=== PATIENT | female | born 1980 | race Caucasian/White ===

== ENCOUNTER 2017-02-23 01:19 | Inpatient (IN) | payer BC ==
[~2017-02-23] VITALS: Ht 167.6 cm; Wt 116.4 kg
[~2017-02-23 01:19] MED LIST: ACET-749 PO; FERR1TAB23; LEVO100T PO; MISC-696; MTR600X PO; OMEP20CA9 PO; PRENTAB26 PO; RANI150T3 PO
[2017-02-23] MEDS ORDERED: LACTATED RINGER'S 1000ML 1,000 ML IV SCH (02:03)
[2017-02-23] MEDS ORDERED: LACTATED RINGER'S 1000ML 1,000 ML IV PRN (02:03)
[2017-02-23] MEDS ORDERED: PENICILLIN G POTASSIUM IV 3 MU in DEXTROSE 5% 100ML 100 ML IV PRN (02:15)
[2017-02-23] MEDS ORDERED: PENICILLIN G POTASSIUM IV 6 MU in DEXTROSE 5% 250ML 250 ML IV ONE (02:15)
[2017-02-23 02:23] LABS: HEMATOCRIT 31.6 % (37-47); MEAN CELL VOLUME 70.9 fL (80-100); MEAN CORPUSCULAR HEMOGLOBIN 21.3 pg (25-34); MEAN CORPUSCULAR HGB CONC 30.1 g/dl (32-36); MEAN PLATELET VOLUME 10.5 fL (7.4-10.4); PLATELET COUNT 247 K/uL (130-400); RED BLOOD COUNT 4.46 M/uL (4.2-5.4); WHITE BLOOD COUNT 13.33 K/uL (4.8-10.8)
[2017-02-23] MEDS ORDERED: BUPIVACAINE 0.25% 30 ML VIAL ONE (02:35)
[2017-02-23] MEDS ORDERED: FENTANYL 2MCG/ML ROPIV 1.25MG/ML 100ML BAG EPI ONE (02:35)
[2017-02-23] MEDS ORDERED: EpHEDrine SULFATE INJ 50 MG/ML AMP ONE (02:35)
[2017-02-23] MEDS ORDERED: FENTANYL CITRATE INJ 50 MCG/1 ML 2 ML VIAL ONE (02:36)
[2017-02-23 02:49] VITALS: Ht 167.6 cm; Wt 116.4 kg
[2017-02-23] MEDS ORDERED: LEVOPOW36 (02:58)
[2017-02-23] MEDS ORDERED: PRLSR20 PO (02:58)
[2017-02-23] MEDS ORDERED: PRENTAB26 PO (02:58)
[2017-02-23] MEDS ORDERED: LACTATED RINGER'S 1000ML 500 ML IV PRN (03:10)
[2017-02-23] MEDS ORDERED: NALOXONE HCL INJ 1 MG in SODIUM CHLORIDE 0.9% 1000ML 1,000 ML IV PRN (03:10)
[2017-02-23] MEDS ORDERED: EpHEDrine SULFATE INJ 50 MG/ML AMP IV PRN (03:15)
[2017-02-23] MEDS ORDERED: NALOXONE HCL INJ 0.4 MG/1 ML VIAL/CARP IV PRN (03:15)
[2017-02-23] MEDS ORDERED: ONDANSETRON INJ 2 MG/ML 2 ML VIAL IV PRN (03:15)
[2017-02-23] MEDS ORDERED: FENTANYL 2MCG/ML ROPIV 1.25MG/ML 100ML BAG EPI PRN (03:15)
[2017-02-23] MEDS ORDERED: DiphenhydrAMINE HCL 50 MG/ML VIAL IV PRN (03:15)
[2017-02-23] MEDS ORDERED: NALBUPHINE HCL INJ 10 MG/ML AMP IV PRN (03:15)
[2017-02-23] MEDS ORDERED: OXYTOCIN 30 UNITS/500ML NSS IV ONE (04:49)
[2017-02-23] MEDS ORDERED: HYDROCORTISONE ACETATE 25 MG SUPP PR PRN (05:30)
[2017-02-23] MEDS ORDERED: DIPHTHERIA/TETANUS/PERTUSSIS 0.5 ML SYR/VIAL IM. ONE (05:30)
[2017-02-23] MEDS ORDERED: ACETAMINOPHEN 325 MG TAB PO PRN (05:30)
[2017-02-23] MEDS ORDERED: SUPERCREAM 0.870 % 15GM JAR EXT PRN (05:30)
[2017-02-23] MEDS ORDERED: BENZOCAINE 20% AER SPR 82.5 GM CAN EXT PRN (05:30)
[2017-02-23] MEDS ORDERED: LANOLIN OINT EXT PRN ×2 (05:30)
[2017-02-23] MEDS ORDERED: OXYTOCIN 30 UNITS/500ML NSS IV PRN (05:30)
[2017-02-23] MEDS ORDERED: MEASLES, MUMPS & RUBELLA VIRUS VIAL SQ. ONE (05:30)
[2017-02-23] MEDS ORDERED: IBUPROFEN 600 MG TAB PO PRN (05:30)
--- NOTE | 2017-02-23 07:09 | Anesthesia Procedure Note ---
Anesthesia Epidural Removal Nt Date & Time Feb 23, 2017 at 07:09 Vital Signs Pain Intensity: 0.0 Notes Mental Status: alert / awake / arousable, participated in evaluation Nausea / Vomiting: adequately controlled Pain: adequately controlled Airway Patency, RR, SpO2: stable & adequate BP & HR: stable & adequate Hydration State: stable & adequate Neuraxial Anesthesia: was administered Anesthetic Complications: no major complications apparent, pt satisfied with anesthetic care Epidural: removed without complications, with tip intact
--- NOTE | 2017-02-23 07:34 | DELIVERY SUMMARY ---
DATE OF OPERATION: 02/23/2017 TIME OF DELIVERY OF BABY: 04:55 a.m. TIME OF DELIVERY OF PLACENTA: 05:14 a.m. DETAILS OF DELIVERY: The patient was found to be fully dilated and desired to push. She pushed only twice and delivered the head without difficulty. Shoulders were delivered with minimal traction. The baby was handed off to the mother where mouth and nose were suctioned. Cord was clamped x2 and cut at 1 minute. Cord blood was obtained, it was 3-vessel cord. Vagina and perineum were checked for lacerations, there was a small perineal laceration at the posterior fourchette and it was second degree, confirmed with the rectal exam. Excellent sphincter tone was noted. Gloves were changed and the laceration was repaired with 2-0 Vicryl in a running locked fashion. Good hemostasis was achieved. Rest of the vagina and perineum were intact. The placenta was found to be in the vagina, delivered spontaneously intact and complete. The uterus was explored and found to be empty. Fundus was firm. Lower segment was cleared of all clots and debris. EBL was 100. Mom and baby tolerated the procedure well. The baby was a viable female infant, Apgars 8/9, weight is pending. No complications happened and I was present during the whole procedure. At the end of the procedure sponge, needle and instrument counts was correct x2. I attest to the content of the Intraoperative Record and any orders documented therein. Any exceptions are noted below. MTDD
[2017-02-23 07:50] VITALS: BP 138/76; PULSE 96; TEMP 37.3
[2017-02-23] MEDS ORDERED: PRENATAL VITAMIN TAB PO SCH (08:00)
[2017-02-23] MEDS ORDERED: FERROUS SULFATE 325 MG TAB PO SCH (08:00)
[2017-02-23] MEDS: DOCUSATE SODIUM 100 MG CAP PO SCH ×2 (09:25→20:25)
[2017-02-23] MEDS: LEVOTHYROXINE 125 MCG TAB PO SCH (10:24)
[2017-02-23 12:10] VITALS: BP 122/78; PULSE 82; TEMP 37
[2017-02-23 15:30] VITALS: BP 111/72; PULSE 90; TEMP 36.9
[2017-02-23] MEDS: PANTOprazole SOD 40 MG TAB PO SCH (20:25)
[2017-02-23] MEDS: OXYCODONE/ACETAMINOPHEN 5-325 TAB PO PRN (20:28)
[2017-02-23 20:30] VITALS: BP 129/84; PULSE 91; TEMP 36.9
[2017-02-23 23:30] VITALS: BP 121/79; PULSE 90; TEMP 36.9
[2017-02-24 03:30] VITALS: BP 134/67; PULSE 82; TEMP 36.8
[2017-02-24 06:48] LABS: HEMATOCRIT 29.7 % (37-47)
[2017-02-24 07:30] VITALS: BP 126/81; PULSE 83; TEMP 36.9
[2017-02-24] MEDS: LEVOTHYROXINE 125 MCG TAB PO SCH (07:38)
[2017-02-24] MEDS: DOCUSATE SODIUM 100 MG CAP PO SCH ×2 (07:39→19:43)
[2017-02-24] MEDS: FLINTSTONES COMPLETE CHEWABLE TAB PO SCH (07:40)
[2017-02-24] MEDS: PANTOprazole SOD 40 MG TAB PO SCH ×2 (07:41→19:43)
[2017-02-24] MEDS: PRENATAL VITAMIN TAB PO SCH (07:41)
--- NOTE | 2017-02-24 07:42 | OB/GYN Progress Note ---
COUN[employer]LL[employer] Progress Note Date of Service Feb 24, 2017. Subjective conversation w/ patient, physical exam Ambulation: ambulating normally Voiding: no voiding problems Passing Gas: Yes Diet Tolerance: Regular Diet Lochia: Small Pain: 4/10 Notes: Doing well, no concerns. Ambulating without difficulty. Tolerating regular diet. Lochia decreasing. Objective Vital Signs Date Time Temp Pulse Resp B/P (MAP) Pulse Ox O2 Delivery O2 Flow Rate FiO2 02/24/17 03:30 36.8 82 18 134/67 (89) Room Air 02/23/17 23:30 Room Air 02/23/17 23:30 36.9 90 18 121/79 (93) Room Air 02/23/17 20:30 36.9 91 16 129/84 (99) Room Air 02/23/17 15:30 Room Air 02/23/17 15:30 36.9 90 20 111/72 (85) Room Air 02/23/17 12:10 37.0 82 20 122/78 (93) Room Air 02/23/17 07:50 37.3 96 20 138/76 (96) 02/23/17 07:50 Room Air Physical Exam General Appearance: WELL-APPEARING Respiratory/Chest: chest non-tender, lungs clear Cardiovascular: regular rate, rhythm Abdomen: normal bowel sounds, soft Fundus: Firm Extremities: normal range of motion, non-tender, no calf tenderness Laboratory Results Last 24 Hours Test 02/24/17 06:18 Hemoglobin 8.6 g/dL Hematocrit 29.7 % Assessment and Plan Post- Day Number: 1 Continue Routine Care: -Continue routine care -Anticipate D/C home tomorrow.
[2017-02-24] MEDS: OXYCODONE/ACETAMINOPHEN 5-325 TAB PO PRN ×3 (08:44→19:44)
[2017-02-24 15:30] VITALS: BP 117/77; PULSE 101; TEMP 36.8
[2017-02-24] MEDS ORDERED: BISACODYL 5 MG TABEC PO SCH (20:00)
[2017-02-24 23:30] VITALS: BP 135/89; PULSE 90; TEMP 36.9
[2017-02-25] MEDS ORDERED: BISACODYL 10 MG SUPP PR PRN (07:00)
[2017-02-25 07:20] VITALS: BP 145/84; PULSE 89; TEMP 36.7; O2SAT 98
[2017-02-25] MEDS: LEVOTHYROXINE 125 MCG TAB PO SCH (07:29)
[2017-02-25] MEDS: DOCUSATE SODIUM 100 MG CAP PO SCH (07:29)
[2017-02-25] MEDS: FLINTSTONES COMPLETE CHEWABLE TAB PO SCH (07:29)
[2017-02-25] MEDS: PRENATAL VITAMIN TAB PO SCH (07:29)
[2017-02-25] MEDS: PANTOprazole SOD 40 MG TAB PO SCH (07:30)
[2017-02-25 08:11] LABS: HEMATOCRIT 30.2 % (37-47); MEAN CELL VOLUME 71.6 fL (80-100); MEAN CORPUSCULAR HEMOGLOBIN 20.6 pg (25-34); MEAN CORPUSCULAR HGB CONC 28.8 g/dl (32-36); MEAN PLATELET VOLUME 10.9 fL (7.4-10.4); PLATELET COUNT 248 K/uL (130-400); RED BLOOD COUNT 4.22 M/uL (4.2-5.4); WHITE BLOOD COUNT 11.55 K/uL (4.8-10.8)
--- NOTE | 2017-02-25 09:26 | OB/GYN Progress Note ---
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 Subjective conversation w/ family, physical exam Ambulation: ambulating normally Voiding: no voiding problems Passing Gas: Yes Diet Tolerance: Regular Diet Lochia: Small Feeding Type: Breast Feeding Objective Vital Signs Date Time Temp Pulse Resp B/P (MAP) Pulse Ox O2 Delivery O2 Flow Rate FiO2 02/25/17 07:20 36.7 89 18 145/84 (104) 98 Room Air 02/25/17 07:20 Room Air 02/24/17 23:30 36.9 90 18 135/89 (104) Room Air 02/24/17 23:30 Room Air 02/24/17 15:30 36.8 101 20 117/77 (90) Room Air 02/24/17 15:30 Room Air Laboratory Results Last 24 Hours Test 02/25/17 07:25 White Blood Count 11.55 K/uL Red Blood Count 4.22 M/uL Hemoglobin 8.7 g/dL Hematocrit 30.2 % Mean Corpuscular Volume 71.6 fL Mean Corpuscular Hemoglobin 20.6 pg Mean Corpuscular Hemoglobin Concent 28.8 g/dl RDW Standard Deviation 44.2 fL RDW Coefficient of Variation 17.0 % Platelet Count 248 K/uL Mean Platelet Volume 10.9 fL Assessment and Plan Post- Day Number: 2 Continue Routine Care: discharged
--- NOTE | 2017-02-25 09:29 | Discharge Instructions ---
Discharge Instructions Date of Service Feb 25, 2017. Admission Reason for Admission: Uterine Contractions Discharge Discharge Diagnosis / Problem: term delivered Discharge Goals Goal(s): Routine recovery after delivery Activity Recommendations Activity Limitations: as noted below Lifting Limitations: no more than 10 pounds Exercise/Sports Limitations: gradually increase as tolerated, until after follow-up appointment May Resume Sexual Activity: after follow-up appointment Shower/Bathe: no limitations Driving or Machine Use: resume 3 days after discharge . Instructions / Follow-Up Instructions / Follow-Up ACTIVITY RECOMMENDATIONS: * Gradual return to full activity over the next 2-3 weeks. * No lifting - nothing heavier than baby over the next 2-3 weeks. * Do not engage in vigorous exercise, sexual activity or sports until cleared by your physician. * Do not drive or operate any motorized equipment until cleared by your physician. * You may shower/bathe daily. BREAST CARE: If you are not breast feeding: * Wear a supportive bra 24 hours a day for one to two weeks. * Avoid stimulating your breasts and nipples as much as possible during the first few weeks after delivery. * When taking a shower, have the warm water hit your back, not breasts. * When your breasts feel full, apply ice packs. Usually three to four times a day helps ease the discomfort. * Take a mild pain medication (Tylenol/Motrin) when you are uncomfortable. If breast feeding: * Use breast milk to lubricate nipples. Lansinoh cream may be used for sore nipples. You do not need to remove cream prior to breast feeding. If using a different brand of cream, check the label for directions regarding removal of cream prior to nursing. * Wear a supportive bra. * If having problems with breasts or breast feeding, call a career development consultant or your health care provider. EPISIOTOMY CARE: After delivery, if you have an episiotomy (stitches), the following steps will ease discomfort and aid healing. * For the first 24 hours after delivery, place ice packs next to your episiotomy to help reduce swelling. * After the first 24 hour-period, sitz baths, either portable or in the tub, are suggested. A shower with a shower arm sprayed over the episiotomy may be comforting. * Cathy care should be done after each voiding and bowel movement. Squirt warm water from a plastic bottle over the perineum (region of the body between the anus and urinary opening) and pat dry. * Use Dermoplast to ease discomfort. Shake container. [place] directly over the episiotomy. * Place a Tucks on a clean sanitary pad next to your episiotomy. OVER THE COUNTER MEDICATION: * For discomfort or pain, you may use Acetaminophen (Tylenol), Ibuprofen (Advil ), or Naproxen (Aleve) following the package directions. * For constipation you may use Colace following the package directions. SPECIAL CARE INSTRUCTIONS: When you are discharged from the hospital, it is important for you to follow the instructions listed below: * During the first week at home, you should be able to care for yourself and your baby. In addition, the usual light household activities are encouraged. * Limit your activities to the way you feel. Do not try to clean the house or move furniture. Be sensible. * If you actively engage in sports and have done so up until the time of your delivery, you may resume these activities as soon as you feel able. This may take up to one month or even longer. Use good judgment. * Continue to take your vitamins for at least six weeks after the of your baby. * Your diet need not be limited unless you were on a special diet before your delivery. Breast-feeding mothers need around 2500 calories per day and at least 64-80 ounces of fluid per day (8 to 10 glasses). * You should eat foods from the four major food groups. Crash diets or fad diets are to be avoided. Eating lean meats, fresh fruits and vegetables, low-fat dairy products, high fiber foods and a regular exercise program, will help you get back to your pre- weight without putting your health at risk. * Constipation is sometimes a problem after delivery. Take a mild laxative as needed. If breast feeding, Milk of Magnesia is acceptable to use. You may use a suppository or Fleets enema if no episiotomy. * A daily shower or tub bath is suggested. Be sure to thoroughly and gently dry the perineum. * A bloody vaginal discharge will usually continue until around four weeks post . A small amount of bleeding may continue for as long as six weeks. Vaginal discharge changes from the bright red bleeding after delivery to pink then brownish and finally yellowish-pink before becoming white and disappearing. * Bleeding may increase with activity. Your first period may come in 4-8 weeks. If you are breast feeding, your period may be delayed even longer. * Ken Caryl (sex) can begin whenever both you and your partner feel comfortable and do not have any form of genital infection. It is recommended that you wait until after your return appointment and discuss with your physician. If you have questions, please talk to your health care practitioner. A condom should be used to prevent infection and . * Foreplay, gentle intercourse and lubrication is very important the first several times to prevent pain. A water-based lubricant such as K-Y jelly or Astroglide may be used. * Tampons may be used six weeks after delivery. * Douching should be avoided for 6 weeks after delivery. * If you have RH negative blood and your baby is RH positive, you will receive RHOGAM by injection prior to discharge. The nurse will give you a card to keep with you that has the date and place that you received RHOGAM after delivery. * During your care, you had a Rubella screen done to check for the presence of rubella antibodies in your blood. If your test was negative, you will receive a Rubella vaccine prior to discharge. This vaccine may cause a fever, soreness at the injection site and flu-like symptoms. If these symptoms persist, notify your health care practitioner. is not advised for three months after a Rubella vaccine. There is a higher chance of having a baby with defects if conceived within three months of getting the vaccine. * If you were discharged 24 hours from delivery or before 48 hours: Visiting nurses will come to your home 48 hours after discharge to assess you and your baby. The visiting nurse will meet with you while you are in the hospital to arrange a time and get directions to your home. * Verbalizes understanding of car seat law as reviewed with patient nursing. * Car Seat hand-out given and reviewed with patient by nursing. * Shaken baby information reviewed with patient by nursing. Call you doctor if: * Heavy bleeding (saturating several pads an hour) or passing clots the size of your fist. * A fever >101 degrees F (38.3 degrees C) on two occasions four hours apart and/or chills. * Unusual pain in the pelvic or vaginal areas. * "Baby Blues" lasting longer than two weeks. If you have any questions or concerns, call your health care practitioner at . FOLLOW-UP VISIT: * Please call the office at to schedule a 6 week examination. It is important you keep this appointment. * It is important for you to make arrangements for either yearly or twice yearly check-ups thereafter. Current Hospital Diet Patient's current hospital diet: Regular OB Diet Discharge Diet Recommended Diet: Regular OB Diet Pending Studies Studies pending at discharge: no Medical Emergencies . Who to Call and When: Medical Emergencies: If at any time you feel your situation is an emergency, please call 911 immediately. . Non-Emergent Contact Non-Emergency issues call your: Primary Care Provider . . "Provider Documentation" section prepared by Chaitanya Ortega. . VTE Core Measure Inpt VTE Proph given/why not?: Treatment not indicated
[2017-02-25] MEDS ORDERED: MTR600X PO (09:30)
[2017-02-25 10:05] VITALS: BP_DIAS 84; PULSE 89; TEMP 36.7
== END 2017-02-25 10:10 | disposition home or self-care (01) | DRG 775 ==
LOC: C.LD 01:19 → C.OPB 01:19 → C.LD 02:04 → C.OBG 08:41
PROVIDERS: ADMIT Obstetrics & Gynecology; ATTEND Obstetrics & Gynecology
PROC: 0KQM0ZZ Repair Perineum Muscle, Open Approach (ICD-10-PCS; principal; 2017-02-23)
PROC: 10E0XZZ Delivery of Products of Conception, External Approach (ICD-10-PCS; principal; 2017-02-23)
DX: O99.824 Streptococcus B carrier state complicating childbirth (principal); O70.1 Second degree perineal laceration during delivery; Z3A.40 40 weeks gestation of pregnancy; Z37.0 Single live birth

== ENCOUNTER → 2017-08-21 | Outpatient (CLI) | payer BC ==
[~2017-08-21] MED LIST changes: -ACET-749 PO; +LEVOPOW36; -MISC-696; +MISC-836; +PRLSR20 PO
== END | disposition home or self-care (01) ==
LOC: C.LAB1850 09:58
PROVIDERS: ATTEND Internal Medicine Endocrinology, Diabetes & Metabolism
DX: E06.3 Autoimmune thyroiditis (principal); E55.9 Vitamin D deficiency, unspecified; R41.3 Other amnesia; R14.0 Abdominal distension (gaseous)

== ENCOUNTER → 2017-08-28 | Outpatient (CLI) | payer BC ==
--- NOTE | 2017-08-28 08:08 | DIAGNOSTIC IMAGING REPORT ---
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 The left lobe measures 51 x 20 x 15 mm. Both lobes are heterogeneous in echotexture. There are tiny bilateral thyroid nodules. Inferior to the lower pole on the left is a 13 x 6 x 6 mm nodule, likely representing a lymph node. This remains unchanged from the preceding study. IMPRESSION: 1. Diffusely heterogeneous thyroid echotexture with tiny nodules, unchanged from the preceding studies. 2. Stable 13 x 6 x 6 mm nodule inferior to the lower pole of the left lobe, likely representing a lymph node Electronically signed by: Wyatt Simeon M.D. 08/28/2017 8:06 AM Dictated Date/Time: 08/28/2017 8:03 AM
== END | disposition home or self-care (01) ==
LOC: C.ULTR 07:22
PROVIDERS: ATTEND Internal Medicine Endocrinology, Diabetes & Metabolism
DX: E06.3 Autoimmune thyroiditis (principal)